=== PATIENT | female | born 1960 | race Caucasian/White ===

== ENCOUNTER → 2018-08-16 06:59 | Outpatient (CLI) | payer OTHER, SELFPAY ==
--- NOTE | 2018-08-17 14:31 | STRESSREP_ITS ---
Stress Test Report Date: 08/16/2018 Procedure: Exercise tolerance test/imaging study Indications: Chest pain Consent: Per the patient Procedure: The patient exercised on a Asa protocol for 4 minutes and 24 seconds achieving a peak heart rate of 144 bpm (87 % predicted maximal heart rate) with a peak blood pressure 194/80 mmHg and a peak MET capacity of 6.2 METs. The baseline ECG demonstrated normal sinus rhythm, no ST-T changes. The peak exercise ECG demonstrated sinus tachycardia with no significant ischemic ST-T changes. EKG during recovery revealed no significant EKG changes of ischemia [There were no cardiac dysrhythmias pretest, during exercise, or recovery]. The functional capacity was considered decreased for age. There was [no complaint of chest discomfort during exercise or recovery]. The examination was discontinued secondary to dyspnea. Impression: 1. Technically adequate (percent predicted maximal heart rate greater than 85%) exercise tolerance test 2. Stress test is negative for exercise-induced EKG changes of ischemia 3. The test test is negative for exercise-induced chest pain 4. Functional capacity is[below average for age] 5. Nuclear images pending Myocardial perfusion imaging study: Technique: The patient was injected with 14.3 mCi of technetium 99m Cardiolite and subsequently rest SPECT Cardiolite nuclear imaging was obtained in the horizontal long, vertical long, and short axis views. The patient exercised on a Asa protocol. Please see above for details. The patient was injected with 44.6 mCi of technetium 99m Cardiolite and subsequently stress SPECT Cardiolite nuclear imaging was obtained in the horizontal long, vertical long, and short axis views. A gated Cardiolite study at peak stress was obtained. Interpretation: Rest and stress SPECT Cardiolite nuclear imaging status post realignment, normalization, and attenuation correction, demonstrates normal myocardial radioisotope uptake on the stress images. There is no evidence of significant ischemia or infarction. The gated Cardiolite study demonstrates no significant regional wall motion abnormalities. The reported LVEF is 68 %. Impression: 1. There is no evidence of significant ischemia or infarction. 2. The gated Cardiolite study reports an LVEF of 68%. This note was generated with [employer] software. It may contain incorrect words, spelling, and punctuation that were not noted in checking the note before signing.
== END ==
PROVIDERS: Family Provider Family Medicine; PCP Family Medicine; Referring Provider Family Medicine; Visit Provider Family Medicine
DX: R07.89 Other chest pain (principal)
CPT/HCPCS: 78452; 93017; A9500; A4216

== ENCOUNTER → 2019-09-14 10:45 | Outpatient (CLI) | payer OTHER, SELFPAY ==
--- NOTE | 2019-09-14 10:49 | CT_ITS ---
STUDY: CT ABDOMEN AND PELVIS WITHOUT CONTRAST REASON FOR EXAM: Female, 59 years old. Abdominal pain history of stones. RADIATION DOSAGE (If Supplied By Facility): CTDIvol = ( 18.52 ) mGy, DLP = ( 957.59 ) mGycm TECHNIQUE: Transaxial images were obtained from the dome of the diaphragm to the symphysis pubis without oral contrast, and without intravenous contrast. Sagittal and coronal images were reconstructed. Individualized dose optimization techniques were used for this CT. COMPARISON: None. FINDINGS: The visualized lung bases are unremarkable. The visualized portions of the heart are within normal limits. The liver is moderately enlarged and fatty infiltrated. Spleen is normal. Gallbladder is removed. There is no biliary dilation. Pancreas is normal. Adrenal glands are normal. There are no urinary calculi or hydronephrosis. There is a left renal 2 cm exophytic well-defined lesion, incompletely characterized. There is no intestinal obstruction. The appendix is normal. Uterus is removed. BMI is elevated with abdominal lipomatosis. CT/Abdomen/Pelvis without Cont IMPRESSION: 1. No acute abdominal findings. 2. Left renal lesion, incompletely characterized, refer to confirmatory imaging such as ultrasound or CT with contrast. 3. Hepatomegaly and steatosis. Hepatology referral is advised. Electronically Signed: Martin Glover, at 15:16 EDT Tel , Service support ,
--- NOTE | 2019-09-14 10:50 | RAD_ITS ---
STUDY: X-RAY - ABDOMEN/PELVIS REASON FOR EXAM: Female, 59 years old. stones, flank pain TECHNIQUE: Frontal view of the abdomen COMPARISON: None. FINDINGS: Normal visualized lung bases. There are cholecystectomy clips. There is an unremarkable bowel gas pattern. There is no demonstrated free abdominal air. The visualized liver, spleen and kidneys are grossly normal in size and morphology. Normal soft tissue structures. Normal visualized osseous structures. RAD/Abdomen Single View IMPRESSION: Normal x-ray examination of the abdomen and pelvis. Electronically Signed: Martin Glover, at 14:48 EDT Tel , Service support ,
== END ==
PROVIDERS: PCP Family Medicine; Referring Provider Urology; Visit Provider Urology
DX: N20.0 Calculus of kidney (principal)
CPT/HCPCS: 74018; 74176

== ENCOUNTER 2019-10-25 10:49 | Observation (INO) | payer OTHER, SELFPAY ==
[2019-10-25] VITALS (10 sets, daily range): BP systolic 143–174; BP diastolic 71–93; PULSE 66–76; RESP 18–107; TEMP 35.2–37.1; O2SAT 96–99; BMI 40.3; BMI 39.9
--- NOTE | 2019-10-25 11:04 | EKG12_ITS ---
Test Reason : DIZZINESS Blood Pressure : / mmHG Vent. Rate : 072 BPM Atrial Rate : 072 BPM P-R Int : 152 ms QRS Dur : 082 ms QT Int : 422 ms P-R-T Axes : 048 022 031 degrees QTc Int : 462 ms Normal sinus rhythm Normal ECG Confirmed by LILLIE COLE, LOS ([id number]), scientific publications editor DRISS RAMIRES ([id number]) on 10/28/2019 1:44:00 PM Referred By: RAO Confirmed By:LOS MOREIRA MD
--- NOTE | 2019-10-25 11:04 | CT_ITS ---
STUDY: CT BRAIN WITHOUT CONTRAST REASON FOR EXAM: Female, 59 years old. Dizziness and nausea today, headache. Hx diabetes. RADIATION DOSAGE (If Supplied By Facility): CTDIvol = ( 44.99 ) mGy, DLP = ( 779.24 ) mGycm TECHNIQUE: Transaxial CT imaging of the brain was performed without administration of intravenous contrast material. Individualized dose optimization techniques were used for this CT. COMPARISON: No relevant priors. FINDINGS: Normal soft tissue structures. Normal calvarium. Normal size ventricles and extra-axial spaces for the patient''s age. Normal white matter tracts of the cerebral hemispheres. Normal basal ganglia and thalami. Normal brainstem. Normal cerebellum. There is no intracranial hemorrhage. There are no findings of an acute ischemic infarction. Normal visualized paranasal sinuses. CT/Brain/Head without Contrast IMPRESSION: Normal unenhanced CT scan of the brain. Electronically Signed: Caio Townsend, at 12:12 EDT , Service support ,
[2019-10-25 11:25] LABS: Bedside Glucose 112 mg/dL (70-110)
--- NOTE | 2019-10-25 11:27 | ED.RN ---
discussed with dr. paul the nih order q30 minutes. per [address] paul no need to complete every 30 minutes. only complete if an acute change occurs.
[2019-10-25 11:34] LABS: Absolute Neutrophil Count 5.8 X10^3/uL (2.0-7.7); Basophil# 0.03 X10^3/uL; Basophil% 0.4 % (0-1); Eosinophil# 0.11 X10^3/uL; Eosinophils% 1.4 % (0-5); Hematocrit 37.5 % (37-47); Lymphocyte % 20.1 % (19-41); Mean Corpuscular Hgb 26.4 pg (27.0-32.0); Mean Corpuscular Volume 82.4 fL (81-99); Mean Platelet Vol. 9.7 fl (6.2-12.0); Monocyte# 0.41 X10^3/uL; Monocyte% 5.2 % (0-10); NRBC Flagged by Analyzer 0 % (0-5); Neutrophil # 5.78 X10^3/uL (2.7-7.7); Neutrophil % 72.5 % (47-70); Platelet Count 313 K/mm3 (150-450); RBC Distribution Width CV 14.1 % (11.6-14.6); RBC Distribution Width SD 41.7 fl (35.1-43.9); Red Blood Count 4.55 M/mm3 (4.2-5.4)
--- NOTE | 2019-10-25 11:35 | RAD_ITS ---
STUDY: X-RAY CHEST REASON FOR EXAM: Female, 59 years old. Dizzy, nauseous, headache. Pt is diabetic. TECHNIQUE: Single AP portable view of the chest. COMPARISON: Comparison is made with prior study dated 12/27/2009. FINDINGS: EKG electrodes are seen. The lungs are clear and expanded. There is no demonstrated pleural abnormality. Normal size heart. Normal mediastinum and madelaine. Normal visualized pulmonary arteries. There is atherosclerotic tortuosity of the aortic arch and descending thoracic aorta. Normal visualized thoracic spine. Normal visualized ribs, clavicles, and shoulders. There is no demonstrated abnormality of the visualized soft tissue structures of the upper abdomen. RAD/Chest 1 View IMPRESSION: No acute abnormality seen. Electronically Signed: Caio Townsend, at 12:12 EDT , Service support ,
[2019-10-25 11:51] LABS: Anion Gap 4 (5-15); BUN 14 mg/dL (7-18); BUN/Creat Ratio 19.8 RATIO (10-20); Calcium,Total 8.8 mg/dL (8.5-10.1); Chloride 107 mmol/L (98-107); Creatinine, Serum 0.71 mg/dL (0.55-1.02); EST Glomerular Filtration Rate 90 mL/min (>60); Est Glom Filt Rate - Afr Amer 109 mL/min (>60); Estimated Creatinine Clearance 75.49 ml/min; Glucose 111 mg/dL (74-106); Potassium 3.9 mmol/L (3.5-5.1); Sodium Level 140 mmol/L (136-145)
--- NOTE | 2019-10-25 12:34 | ED.DCSUM_ITS ---
- ER Visit Summary Date of Service: 10/25/19 Chief Complaint: Dizziness History of Present Illness: The patient is a 59 F who presents with vertigo. Symptoms started prior to arrival. She had similar symptoms intermittently over the past week. Associated with nausea, mental fogginess, headache, her balance is off, and she had trouble speaking and finding words. She has a history of diabetes and hypertension. She recently stopped her blood pressure medicines because they were causing a cough. She is not on anticoagulation. Physical Examination: Hypertensive but otherwise vitals unremarkable. NIH stroke scale is 0. Exam including HEENT exam is unremarkable. Test Results: EKG shows sinus rhythm at a rate of 72. CBC, BMP, coags, troponin normal. Chest x-ray and CT brain unremarkable. Emergency Department Course and Treatment: Patient presents with vertigo. She does not have clear-cut peripheral vertigo symptoms. She has risk factors for stroke and she is having some other associated symptoms such as speech changes. Given these findings and her risk factors, I contacted the hospitalist to admit to rule out stroke. I do not suspect a large vessel occlusion at this time. CTA was not performed. Patient did not meet criteria for TPA or stroke team activation. Treatment Plan: As above Disposition: Admission Impression: Vertigo This note was generated with [employer] dictation software. It may contain incorrect words, spelling, and punctuation that were not noted in review of the chart prior to signing ED Disposition - Plan for ED Patient: Referrals: Ralf Capellan III, MD [Primary Care Provider] -
--- NOTE | 2019-10-25 12:54 | NURSING ---
PCU VERTIGO KOTSONIS
--- NOTE | 2019-10-25 13:43 | ECHOCS_ITS ---
Reason For Study: TIA/CVA Procedure This was a 2D Doppler, Color Flow transthoracic echocardiogram. Contrast injection was performed. Exam performed portable in patient room. Left Ventricle Normal LV size. Left ventricular systolic function is normal. The estimated ejection fraction is 65 %. No regional wall motion abnormalities noted. Right Ventricle Normal RV size. Normal systolic function. Atria Normal left atrium. Normal right atrium. Bubble contrast study negative for right to left interatrial shunt. Mitral Valve Normal mitral valve. Aortic Valve The aortic valve is not well visualized. Great Vessels Normal aortic root. Pericardium/Pleural No pericardial effusion. Medication Diluted definity 3ml given slow IV push to enhance endocardial definition. Performed a rapid injection of agitated mix of 9 cc saline and 1cc air to assess for atrial septal defect. MMode/2D Measurements & Calculations LVIDd: 4.1 cm IVSd: 1.2 cm Ao root diam: 3.6 cm LVIDs: 2.7 cm LVPWd: 1.4 cm LA dimension: 3.9 cm FS: 34.6 % LAV(MOD-bp): 65.1 ml LVAd ap4: 38.7 cm2 SV(MOD-sp4): 96.1 ml LAV(MOD-bp) Indexed: 31.1 ml/m2 EDV(MOD-sp4): 137.3 ml LAV(MOD-sp2): 63.0 ml EDV(sp4-el): 145.5 ml LAV(MOD-sp4): 59.4 ml LVAs ap4: 17.7 cm2 ESV(MOD-sp4): 41.2 ml ESV(sp4-el): 43.9 ml EF(MOD-sp4): 70.0 % EF(sp4-el): 69.9 % SV(sp4-el): 101.6 ml LA A4 area: 20.7 cm2 RA A4 area: 16.8 cm2 Time Measurements MV dec time: 0.21 sec Doppler Measurements & Calculations MV E max bib: 81.9 cm/sec Lat Peak E' Bib: 10.9 cm/sec Med Peak E' Bib: 9.3 cm/sec MV A max bib: 87.7 cm/sec E/E' lat: 7.5 E/E' med: 8.8 MV E/A: 0.93 MV V2 max: 93.2 cm/sec MV P1/2t max bib: 90.2 cm/sec Ao V2 max: 138.9 cm/sec MV max P.5 mmHg MV P1/2t: 56.2 msec Ao max P.7 mmHg MV V2 mean: 51.0 cm/sec MV dec slope: 469.8 cm/sec2 MV mean P.2 mmHg MV V2 VTI: 28.3 cm MVA(P1/2t): 3.9 cm2 LV V1 max: 114.3 cm/sec PA V2 max: 89.8 cm/sec TR max bib: 278.3 cm/sec LV V1 max P.2 mmHg TR max P.0 mmHg Interpretation Summary Normal LV size. Left ventricular systolic function is normal. Bubble contrast study negative for right to left interatrial shunt. Ordering Physician: Jaxson Maravilla Referring Physician: ANNABELLE Capellan M.D. Performed By: Sonu Juan RCS
--- NOTE | 2019-10-25 13:43 | MRI_ITS ---
STUDY: MRI BRAIN WITHOUT CONTRAST REASON FOR EXAM: Female, 59 years old. dizziness, frontal and occipital H/A TECHNIQUE: Standardized multiplanar fat and water weighted pulse sequences were obtained. COMPARISON: CT of the brain 10/25/2019 FINDINGS: Normal size of the ventricles and extra-axial spaces for the patient''s age. There are 2 tiny white matter lesions which are nonspecific in etiology and of uncertain clinical significance. Normal bilateral basal ganglia. Normal thalami. There is no extra-axial fluid accumulation. Normal flow voids within the major intracranial circulation suggesting patency by spin echo criteria. Normal sella turcica, pituitary gland, infundibular stalk, optic chiasm and hypothalamus. Normal tectal plate and pineal gland. Normal midbrain, leah and medulla. Normal cerebellum. Normal basal cisterns. Normal bilateral temporal bones. Normal bilateral internal auditory canals. Increased signal intensity within left mastoid air cells which may be on the basis of inflammatory disease. Minor mucosal thickening within the ethmoid air cells No demonstrated orbital abnormality, within the constraints of a routine brain study. Polypoid mucosal thickening in the left maxillary antrum.. Normal calvarium and skull base. Normal visualized soft tissue structures. Normal visualized upper cervical spine. MRI/Brain without Contrast IMPRESSION: Minimal white matter changes of uncertain etiology or clinical significance. No evidence for significant white matter disease or acute infarct Electronically Signed: Hardeep Mancia MD at 16:21 EDT , Service support ,
--- NOTE | 2019-10-25 17:18 | CT_ITS ---
STUDY: CTA HEAD AND NECK WITH CONTRAST REASON FOR EXAM: Female, 59 years old. VERTIGO, NAUSEA, MENTAL FOGGINESS, OFF BALANCE, APHASIA RADIATION DOSAGE (If Supplied By Facility): CTDIvol = ( 20.325 ) mGy, DLP = ( 731.22 ) mGycm TECHNIQUE: CT angiography was performed with a multi-detector CT scanner. Data acquisition was obtained from the skull base through the vertex following intravenous administration of IV 100mL Isovue-370. MIP images were reconstructed from the axial data set. Post-processing of the angiographic images was performed, with multiplanar reformation and 3D reconstruction. Individualized dose optimization techniques were used for this CT. COMPARISON: No relevant priors. FINDINGS: Normal bilateral petrous carotid arteries. Normal right cavernous carotid artery with a normal supraclinoid bifurcation. Normal left cavernous carotid artery with a normal supraclinoid bifurcation. Normal right A1 segments of the anterior cerebral artery. Normal left A1 segments of the anterior cerebral artery. Anterior communicating artery is not visualized consistent with normal variant.). Normal bilateral A2 segments of the anterior cerebral arteries. Normal right M1 and M2 segments of the middle cerebral arteries, with a normal M1 bifurcation. Normal left M1 and M2 segments of the middle cerebral arteries, with a normal M1 bifurcation. Posterior communicating arteries not visualized consistent with normal variant. Normal bilateral vertebral arteries. Normal basilar artery with a normal basilar bifurcation. The visualized bilateral superior cerebellar (SCA) arteries are normal. Normal bilateral P1, P2 and visualized P3 segments of the posterior cerebral arteries. There is no demonstrated aneurysm of the [place]. There is no demonstrated abnormality of the visualized brain. AORTIC ARCH: Normal visualized aortic arch. Normal origins of the brachiocephalic, left common carotid, and left subclavian arteries. RIGHT CAROTID ARTERIES: Normal right common carotid artery (CCA). Normal right common carotid bulb. Normal origin of the right internal carotid (ICA) artery without a hemodynamically significant stenosis. Normal visualized cervical portion of the right internal carotid artery. Normal origin of the right external carotid artery (ECA). LEFT CAROTID ARTERIES: Normal left common carotid artery (CCA). Normal left common carotid bulb. Normal origin of the left internal carotid (ICA) artery without a hemodynamically significant stenosis. Normal visualized cervical portion of the left internal carotid artery. Normal origin of the left external carotid artery (ECA). VERTEBRAL ARTERIES: Right vertebral artery is normal caliber. There is calcific plaquing of the proximal left vertebral without significant stenosis CT/CTA Head AND Neck W/ Contrast IMPRESSION: Mild atherosclerotic disease with most pronounced involvement of the proximal left vertebral artery. No evidence for hemodynamically significant stenosis utilizing NASCET criteria Electronically Signed: Hardeep Mancia MD at 18:30 EDT , Service support ,
[2019-10-25 17:30] LABS: Bedside Glucose 104 mg/dL (70-110)
--- NOTE | 2019-10-25 17:37 | PCM.HP.STD ---
History of Present Illness Date of Admission: 10/25/19 Chief Complaint: Vertigo The patient is a 59 year old F with a PMH as below who presents to the hospital with repeated episodes of vertigo. She states that it feels like maybe she is spinning but also feels like when you get up too fast and you get a little bit lightheaded. She does not have any significant symptoms whenever she turns her head unless she turns her head too quickly. She denies any significant positional issues with this vertigo. She has chronic numbness in her lower extremities due to diabetes, and she has a numb left thumb that she was told was due secondary to a pinched nerve therefore in the ER her NIH was 0. She does not appear to have any slurred speech or blurry vision. She does describe having posterior neck pain and she is not sure where that came from but denies any neck stiffness or photophobia. She had been having intermittent vertigo-like symptoms over the last week or so however they would usually resolve, this 1 has been going on all day. Of note she has noticed over the last several months that she has been having word finding issues though she and her primary care physician have just attributed this to the aging process. Past Medical History Allergies Sulfa (Sulfonamide Antibiotics) Allergy (Verified 10/25/19 10:50) Hives amoxicillin [From Augmentin] Adverse Reaction (Verified 10/25/19 10:50) Upset Stomach clavulanic acid [From Augmentin] Adverse Reaction (Verified 10/25/19 10:50) Upset Stomach codeine Adverse Reaction (Verified 10/25/19 10:50) Nausea/Vom/Diarrhea dicyclomine [From Bentyl] Adverse Reaction (Verified 10/25/19 10:50) Nausea/Vom/Diarrhea Home Medications: Ambulatory Orders Medication Instructions Recorded Paroxetine [Paxil] 20 mg PO QHS 08/02/16 Omeprazole [Prilosec] 20 mg PO DAILY 08/05/16 Dulaglutide [Trulicity] 0.75 mg SQ QWEEK 10/25/19 Insulin Aspart [Novolog Flexpen] 8 units SQ TIDCM 10/25/19 Insulin Glargine,Hum.rec.anlog 44 unit SQ QHS 10/25/19 [Basaglar Kwikpen U-100] Surgical History: cholecystectomy, herniorrhaphy, hysterectomy Smoking Status: Never smoker Alcohol: None Drugs: None - *Family History Paternal History Items: Renal Disease Maternal History Items: Cancer Review of Systems Constitutional: Denies: Chills, Fever, Weight Change Eyes: Denies: Blurred vision, Vision Change HEENT: Denies: Head Aches, Sinus Congestion, Sinus Drainage Cardiovascular: Denies: Chest Pain, Palpitations Respiratory: Denies: Cough, Shortness of breath at rest, Sputum production Gastrointestinal: Denies: Abdominal Pain, Nausea, Vomiting Genitourinary: Denies: Dysuria Musculoskeletal: Denies: Joint Pain, Joint Tenderness Skin: Denies: Rash, Wounds Neurological: Reports: Balance problems, - - Dizziness. Denies: Focal weakness, Numbness, Tingling Psychiatric: Denies: Anxiety, Depression Hematologic/ Lymphatic: Denies: Easy Bruising, Easy Bleeding VTE Information - Inpt Only VTE Present on Admission: No - Physical Exam Vitals/I&O's: Vital Signs Temp Pulse Resp BP Pulse Ox 98.7 F 72 18 158/72 H 98 10/25/19 13:43 10/25/19 15:53 10/25/19 13:43 10/25/19 13:43 10/25/19 15:20 Oxygen Delivery Method Room Air Weight: 234 lb Body Mass Index (BMI) 39.9 Finger Stick Blood Glucose 112 General: Alert, Oriented x3, Cooperative, No apparent distress HEENT: Atraumatic, PERRLA, EOMI, Normocephalic Oral: Moist Mucosa Neck: Supple, No JVD Lungs: Clear to auscultation, Normal air movement, No rhonchi, No wheeze, No rales Cardiovascular: Regular rate, Regular Rhythm, Normal S1, Normal S2, No murmurs Abdomen: Soft, Non Tender, Non-Distended, No Hepato-splenomegaly Extremities: No edema, Capillary Refill Less than 3 Seconds Skin: No rashes, No breakdown Neurological: Cranial nerves II-XII grossly intact, Neuro grossly intact, Motor Exam 5/5 strength throughout, Sensory exam intact to light touch and pain Psych/Mental Status: Normal Affect, Appropriate Laboratory Results 10/25/19 11:13: POC Glucose 112 H 10/25/19 11:25: WBC 8.0, RBC 4.55, Hgb 12.0, Hct 37.5, MCV 82.4, MCH 26.4 L, MCHC 32.0, RDW Std Deviation 41.7, RDW Coeff of Baljit 14.1, Plt Count 313, MPV 9.7, Immature Gran % (Auto) 0.400, Neut % (Auto) 72.5 H, Lymph % (Auto) 20.1, [place] % (Auto) 5.2, Eos % (Auto) 1.4, Baso % (Auto) 0.4, Absolute Neuts (auto) 5.8, Absolute Lymphs (auto) 1.60, Nucleated RBC % 0 10/25/19 11:25: PT 13.0, INR 1.0, APTT 27.0 10/25/19 11:25: Sodium 140, Potassium 3.9, Chloride 107, Carbon Dioxide 29.0, Anion Gap 4 L, BUN 14, Creatinine 0.71, Estim Creat Clear Calc 75.49, Est GFR (MDRD) Af Amer 109, Est GFR (MDRD) Non-Af 90, BUN/Creatinine Ratio 19.8, Glucose 111 H, Calcium 8.8, Troponin I < 0.015 10/25/19 17:18: POC Glucose 104 Current Medications Acetaminophen (Tylenol) 650 mg PO Q6H PRN PRN PRN Reason: Pain Score 1-10/Temp > 100.7 F Amlodipine Besylate (Norvasc) 10 mg PO DAILY [facility] Dextrose (D50w Syringe) 0 gm IV X1 PRN; Protocol PRN Reason: Hypoglycemia Glucagon () 1 mg IM .X1 PRN PRN Reason: Hypoglycemia Hydrochlorothiazide (Hctz) 25 mg PO DAILY [facility] Influenza Virus Vaccine Quadrival (Flucelvax /Fluzone ) 0.5 ml IM .ONCE ONE Stop: 10/26/19 10:01 Insulin Glargine (Lantus (Bk)) 44 units SC QHS [facility] Insulin Human Lispro (Humalog Kwikpen (Bk)) 8 unit SC TIDCM [facility] Last Admin: 10/25/19 17:22 Dose: Not Given Documented by: Labetalol HCl (Trandate) 20 mg IV X1 PRN PRN Reason: BLOOD PRESSURE Meclizine HCl (Antivert) 25 mg PO TID PRN PRN PRN Reason: DIZZINESS Melatonin (Melatonin) 3 mg PO QHS PRN PRN PRN Reason: INSOMNIA Ondansetron HCl (Zofran) 4 mg IV Q8H PRN PRN PRN Reason: NAUSEA/VOMITING Pantoprazole Sodium (Protonix) 20 mg PO DAILY [facility] Paroxetine HCl (Paxil) 20 mg PO QHS [facility] Sodium Chloride () 10 - 40 ml IV UD PRN PRN Reason: SALINE FLUSH Assessment/Plan 1. CVA versus vertigo/HTN -MRI of the brain was negative as was the echo -CT the brain was normal -NIH is 0, physical exam is unremarkable -We will obtain a CTA of the head and neck to rule out any vascular issues since she is complaining about posterior neck pain and the vertigo -Continue with meclizine -She had been on lisinopril and hydrochlorothiazide as an outpatient however this was stopped a week or 2 ago because of coughing therefore will transition her to hydrochlorothiazide and Norvasc monitor her blood pressure in the morning. 2. IDDM 2 -We will continue with her home insulin -Accu-Cheks AC at bedtime 3. GERD -Stable -Continue with PPI 4. Anxiety/depression -Stable -Continue with Paxil DVT: Ambulation OBSV E&M: [id number] Initial observation care L3
[2019-10-25] MEDS: Paroxetine 20 MG Tablet PO (20:04)
--- NOTE | 2019-10-25 20:10 | NURSING ---
Pt requesting to have night meds early.
[2019-10-25 21:01] LABS: Bedside Glucose 151 mg/dL (70-110)
[2019-10-26 02:59] VITALS: PULSE 72
[2019-10-26 03:15] VITALS: BP 140/69; PULSE 78; RESP 16; TEMP 36.6; O2SAT 97
[2019-10-26 06:50] LABS: Absolute Neutrophil Count 5.2 X10^3/uL (2.0-7.7); Basophil# 0.04 X10^3/uL; Basophil% 0.5 % (0-1); Eosinophil# 0.13 X10^3/uL; Eosinophils% 1.7 % (0-5); Hematocrit 35.9 % (37-47); Hemoglobin 11.3 g/dL (12.0-15.0); Lymphocyte % 23.8 % (19-41); Mean Corp Hgb Conc 31.5 g/dL (32-36); Mean Corpuscular Volume 82.7 fL (81-99); Mean Platelet Vol. 9.8 fl (6.2-12.0); Monocyte# 0.42 X10^3/uL; Monocyte% 5.5 % (0-10); NRBC Flagged by Analyzer 0 % (0-5); Neutrophil # 5.16 X10^3/uL (2.7-7.7); Neutrophil % 68.2 % (47-70); Platelet Count 301 K/mm3 (150-450); RBC Distribution Width SD 42.2 fl (35.1-43.9); Red Blood Count 4.34 M/mm3 (4.2-5.4); White Blood Count 7.6 K/mm3 (4.4-11.0)
[2019-10-26 06:55] VITALS: PULSE 72
[2019-10-26 07:04] LABS: Anion Gap 7 (5-15); BUN 12 mg/dL (7-18); BUN/Creat Ratio 17.7 RATIO (10-20); Calcium,Total 8.3 mg/dL (8.5-10.1); Chloride 104 mmol/L (98-107); Creatinine, Serum 0.68 mg/dL (0.55-1.02); EST Glomerular Filtration Rate 95 mL/min (>60); Est Glom Filt Rate - Afr Amer 115 mL/min (>60); Estimated Creatinine Clearance 78.82 ml/min; Glucose 129 mg/dL (74-106); Potassium 3.6 mmol/L (3.5-5.1); Sodium Level 139 mmol/L (136-145)
[2019-10-26 07:30] VITALS: O2SAT 97
[2019-10-26 08:01] VITALS: BP 136/68; PULSE 78; RESP 16; TEMP 36.8; O2SAT 98
[2019-10-26] MEDS: Acetaminophen 325 MG Tablet 650 MG PO (08:07)
[2019-10-26] MEDS: hydroCHLOROthiazide 25 MG Tablet PO (08:08)
[2019-10-26] MEDS: amLODIPine 10 MG Tablet PO (08:08)
[2019-10-26] MEDS: Pantoprazole Sodium 20 MG Tablet PO (08:08)
[2019-10-26 08:11] LABS: Bedside Glucose 132 mg/dL (70-110)
[2019-10-26] MEDS: Insulin Lispro 100 UNIT/ML INSULN.PEN 8 UNIT SC (08:13)
--- NOTE | 2019-10-26 08:24 | DCINST_ITS ---
You will use the following diet at home:: Calorie/Carbohydrate Controlled (specify 1200, 1400, etc) - 1800, Cardiac Your food should be the consistency of: Regular Your liquids should be the consistency of: Regular/Thin Discharge Activity: Return to Normal Activity Call your doctor if you observe: Fever of 101 or Higher, Shortness of breath, Dizziness, Fainting spells, Swelling in the ankles, Chest pain, Increased palpitations (irregular heartbeat) Additional Instructions: Have a BMP as an outpatient to monitor you kidney function and electrolytes. If you notice any lightheadedness or dizzines, check your blood pressure, if low, then cut your norvasc in half. Allergies/Adverse Reactions: Allergies Sulfa (Sulfonamide Antibiotics) Allergy (Verified 10/25/19 10:50) Hives amoxicillin [From Augmentin] Adverse Reaction (Verified 10/25/19 10:50) Upset Stomach clavulanic acid [From Augmentin] Adverse Reaction (Verified 10/25/19 10:50) Upset Stomach codeine Adverse Reaction (Verified 10/25/19 10:50) Nausea/Vom/Diarrhea dicyclomine [From Bentyl] Adverse Reaction (Verified 10/25/19 10:50) Nausea/Vom/Diarrhea Medications to take at Discharge Paroxetine [Paxil] 20 mg PO QHS 08/02/16 Omeprazole [Prilosec] 20 mg PO DAILY 08/05/16 Dulaglutide [Trulicity] 0.75 mg SQ QWEEK 10/25/19 Insulin Aspart [Novolog Flexpen] 8 units SQ TIDCM 10/25/19 Insulin Glargine,Hum.rec.anlog [Basaglar Kwikpen U-100] 44 unit SQ QHS 10/25/19 Amlodipine [Norvasc] 10 mg PO DAILY #30 tab 10/26/19 Hydrochlorothiazide [Hctz] 25 mg PO DAILY #30 tab 10/26/19 Meclizine HCl [Antivert] 25 mg PO TID PRN PRN #15 tab 10/26/19 The following prescriptions were given: Meclizine HCl [Antivert] 25 mg PO TID PRN PRN #15 tab PRN Reason: Dizziness Hydrochlorothiazide [Hctz] 25 mg PO DAILY #30 tab Amlodipine [Norvasc] 10 mg PO DAILY #30 tab Primary Care Physician: Ralf Capellan III, MD [Primary Care Provider] - Please follow up with your Primary Care Physician in: 3-5 days Test Results: Test results from this visit will be discussed in further detail at your follow- up appointment, if applicable.
--- NOTE | 2019-10-26 08:27 | DS.PCM_ITS ---
Discharge Date and Diagnosis Date of Admission: 10/25/19 Date of Discharge: 10/26/19 Hospital Course and Treatment Imaging Results: Clinical Impression(s) from Imaging Studies Brain CT 10/25/19 11:04 IMPRESSION: Normal unenhanced CT scan of the brain. Electronically Signed: Caio Adhikarijacksonla, at 12:12 EDT , Service support , Chest X-Ray 10/25/19 11:35 IMPRESSION: No acute abnormality seen. Electronically Signed: Caio Bourgeoisdany, at 12:12 EDT , Service support , Brain MRI 10/25/19 13:43 IMPRESSION: Minimal white matter changes of uncertain etiology or clinical significance. No evidence for significant white matter disease or acute infarct Electronically Signed: Hardeep Mancia MD at 16:21 EDT , Service support , Head/Neck CTA 10/25/19 17:18 IMPRESSION: Mild atherosclerotic disease with most pronounced involvement of the proximal left vertebral artery. No evidence for hemodynamically significant stenosis utilizing NASCET criteria Electronically Signed: Hardeep Mancia MD at 18:30 EDT , Service support , Echo: Interpretation Summary Normal LV size. Left ventricular systolic function is normal. Bubble contrast study negative for right to left interatrial shunt. Operations: None Procedures: 2-D Echocardiogram Summary of Care Provided: Per HPI: The patient is a 59 year old F with a PMH as below who presents to the hospital with repeated episodes of vertigo. She states that it feels like maybe she is spinning but also feels like when you get up too fast and you get a little bit lightheaded. She does not have any significant symptoms whenever she turns her head unless she turns her head too quickly. She denies any significant positional issues with this vertigo. She has chronic numbness in her lower extremities due to diabetes, and she has a numb left thumb that she was told was due secondary to a pinched nerve therefore in the ER her NIH was 0. She does not appear to have any slurred speech or blurry vision. She does describe having posterior neck pain and she is not sure where that came from but denies any neck stiffness or photophobia. She had been having intermittent vertigo-like symptoms over the last week or so however they would usually resolve, this 1 has been going on all day. Of note she has noticed over the last several months that she has been having word finding issues though she and her primary care physician have just attributed this to the aging process. Hospital Course: 1. CVA versus vertigo/[id number]-old female who presents from home with about a weeks worth of vertigo. She says it got worse on the day of admission. Echo was unremarkable, and the MRI of her brain was negative. She was complaining of some neck pain in the back therefore we ordered a CTA of her head and neck which was negative for any vascular problems. She was placed on meclizine however her blood pressure was elevated as well, and she states that she used to be on lisinopril/hydrochlorothiazide combination pill and she started having a cough so without consulting her doctor she just stopped her blood pressure medications. It does appear that the vertigo could likely be due to hypertension therefore she was started on hydrochlorothiazide and Norvasc. This was discussed with her and she understands that if she is to get lightheaded or dizzy she is to check her blood pressure and if it is low she is to either cut her Norvasc in half or just discontinue it altogether. She already has an appointment set up with her PCP on Monday of this week and I told her to keep that appointment. I discussed with her the plan for discharge today and she expressed understanding the risks and benefits and would like to go home. 2. Insulin-dependent type 2 diabetes, GERD, anxiety, depression are all chronic medical conditions that complicate her care. Her home medications were continued where appropriate - Physical Exam Vitals/I&O's: Vital Signs Temp Pulse Resp BP Pulse Ox 98.3 F 78 16 136/68 H 98 10/26/19 08:01 10/26/19 08:01 10/26/19 08:01 10/26/19 08:01 10/26/19 08:01 Oxygen Flow Rate (L/min) 0 Oxygen Delivery Method Room Air Weight: 234 lb Body Mass Index (BMI) 39.9 Finger Stick Blood Glucose 112 Intake and Output for Last 24 Hours 10/24/19 10/25/19 10/26/19 23:59 23:59 23:59 Intake Total 480 / 480 Balance 480 / 480 General: Alert, Oriented x3, Cooperative, No apparent distress HEENT: Atraumatic, PERRLA, EOMI, Normocephalic Oral: Moist Mucosa Neck: Supple, No JVD Lungs: Clear to auscultation, Normal air movement, No rhonchi, No wheeze, No rales Cardiovascular: Regular rate, Regular Rhythm, Normal S1, Normal S2, No murmurs Abdomen: Soft, Non Tender, Non-Distended, No Hepato-splenomegaly Extremities: No edema, Capillary Refill Less than 3 Seconds Skin: No rashes, No breakdown Neurological: Cranial nerves II-XII grossly intact, Neuro grossly intact, Motor Exam 5/5 strength throughout, Sensory exam intact to light touch and pain Psych/Mental Status: Normal Affect, Appropriate Laboratory Results 10/25/19 11:13: POC Glucose 112 H 10/25/19 11:25: WBC 8.0, RBC 4.55, Hgb 12.0, Hct 37.5, MCV 82.4, MCH 26.4 L, MCHC 32.0, RDW Std Deviation 41.7, RDW Coeff of Baljit 14.1, Plt Count 313, MPV 9.7, Immature Gran % (Auto) 0.400, Neut % (Auto) 72.5 H, Lymph % (Auto) 20.1, [place] % (Auto) 5.2, Eos % (Auto) 1.4, Baso % (Auto) 0.4, Absolute Neuts (auto) 5.8, Absolute Lymphs (auto) 1.60, Nucleated RBC % 0 10/25/19 11:25: PT 13.0, INR 1.0, APTT 27.0 10/25/19 11:25: Sodium 140, Potassium 3.9, Chloride 107, Carbon Dioxide 29.0, Anion Gap 4 L, BUN 14, Creatinine 0.71, Estim Creat Clear Calc 75.49, Est GFR (MDRD) Af Amer 109, Est GFR (MDRD) Non-Af 90, BUN/Creatinine Ratio 19.8, Glucose 111 H, Calcium 8.8, Troponin I < 0.015 10/25/19 17:18: POC Glucose 104 10/25/19 20:02: POC Glucose 151 H 10/26/19 06:23: WBC 7.6, RBC 4.34, Hgb 11.3 L, Hct 35.9 L, MCV 82.7, MCH 26.0 L, MCHC 31.5 L, RDW Std Deviation 42.2, RDW Coeff of Baljit 14.0, Plt Count 301, MPV 9.8, Immature Gran % (Auto) 0.300, Neut % (Auto) 68.2, Lymph % (Auto) 23.8, [place] % (Auto) 5.5, Eos % (Auto) 1.7, Baso % (Auto) 0.5, Absolute Neuts (auto) 5.2, Absolute Lymphs (auto) 1.80, Nucleated RBC % 0 10/26/19 06:23: Sodium 139, Potassium 3.6, Chloride 104, Carbon Dioxide 28.0, Anion Gap 7, BUN 12, Creatinine 0.68, Estim Creat Clear Calc 78.82, Est GFR (MDRD) Af Amer 115, Est GFR (MDRD) Non-Af 95, BUN/Creatinine Ratio 17.7, Glucose 129 H, Calcium 8.3 L 10/26/19 07:59: POC Glucose 132 H Current Medications Acetaminophen (Tylenol) 650 mg PO Q6H PRN PRN PRN Reason: Pain Score 1-10/Temp > 100.7 F Last Admin: 10/26/19 08:07 Dose: 650 mg Documented by: Amlodipine Besylate (Norvasc) 10 mg PO DAILY [facility] Last Admin: 10/26/19 08:08 Dose: 10 mg Documented by: Dextrose (D50w Syringe) 0 gm IV X1 PRN; Protocol PRN Reason: Hypoglycemia Glucagon () 1 mg IM .X1 PRN PRN Reason: Hypoglycemia Hydrochlorothiazide (Hctz) 25 mg PO DAILY [facility] Last Admin: 10/26/19 08:08 Dose: 25 mg Documented by: Influenza Virus Vaccine Quadrival (Flucelvax /Fluzone ) 0.5 ml IM .ONCE ONE Stop: 10/26/19 10:01 Insulin Glargine (Lantus (Bk)) 44 units SC QHS [facility] Last Admin: 10/25/19 20:04 Dose: 44 units Documented by: Insulin Human Lispro (Humalog Kwikpen ([facility])) 8 unit SC TIDCM [facility] Last Admin: 10/26/19 08:13 Dose: 8 units Documented by: Labetalol HCl (Trandate) 20 mg IV X1 PRN PRN Reason: BLOOD PRESSURE Meclizine HCl (Antivert) 25 mg PO TID PRN PRN PRN Reason: DIZZINESS Melatonin (Melatonin) 3 mg PO QHS PRN PRN PRN Reason: INSOMNIA Ondansetron HCl (Zofran) 4 mg IV Q8H PRN PRN PRN Reason: NAUSEA/VOMITING Pantoprazole Sodium (Protonix) 20 mg PO DAILY [facility] Last Admin: 10/26/19 08:08 Dose: 20 mg Documented by: Paroxetine HCl (Paxil) 20 mg PO QHS [facility] Last Admin: 10/25/19 20:04 Dose: 20 mg Documented by: Sodium Chloride () 10 - 40 ml IV UD PRN PRN Reason: SALINE FLUSH Discharge Activity: Return to Normal Activity Call your doctor if you observe: Fever of 101 or Higher, Shortness of breath, Dizziness, Fainting spells, Swelling in the ankles, Chest pain, Increased palpitations (irregular heartbeat) Home Medications: Medications to take at Discharge Paroxetine [Paxil] 20 mg PO QHS 08/02/16 Omeprazole [Prilosec] 20 mg PO DAILY 08/05/16 Dulaglutide [Trulicity] 0.75 mg SQ QWEEK 10/25/19 Insulin Aspart [Novolog Flexpen] 8 units SQ TIDCM 10/25/19 Insulin Glargine,Hum.rec.anlog [Basaglar Kwikpen U-100] 44 unit SQ QHS 10/25/19 Amlodipine [Norvasc] 10 mg PO DAILY #30 tab 10/26/19 Hydrochlorothiazide [Hctz] 25 mg PO DAILY #30 tab 10/26/19 Meclizine HCl [Antivert] 25 mg PO TID PRN PRN #15 tab 10/26/19 Following Prescriptions Were Given to Patient: Meclizine HCl [Antivert] 25 mg PO TID PRN PRN #15 tab PRN Reason: Dizziness Hydrochlorothiazide [Hctz] 25 mg PO DAILY #30 tab Amlodipine [Norvasc] 10 mg PO DAILY #30 tab Primary Care Physician: Ralf Capellan III, MD [Primary Care Provider] - Please follow up with your Primary Care Physician in: 3-5 days Disposition: Home Minutes spent on discharge:: 35 Patient Condition:: Stable Medical Necessity - Tobacco Use Smoking Status: Never smoker Meaningful Use Info Meaningful Use Diagnoses (Choose all that apply): None applicable OBSV E&M: 14729 Observation care discharge
== END 2019-10-26 08:25 | disposition home or self-care (01) ==
LOC: ED 12:42 → PCU 13:32
PROVIDERS: Admitting Provider Family Medicine; Emergency Provider Emergency Medicine; PCP Family Medicine; Visit Provider Family Medicine
DX: R42 Dizziness and giddiness (principal); Z23 Encounter for immunization; I10 Essential (primary) hypertension; E11.9 Type 2 diabetes mellitus without complications; R29.700 NIHSS score 0; Z79.899 Other long term (current) drug therapy; Z79.4 Long term (current) use of insulin; K21.9 Gastro-esophageal reflux disease without esophagitis; F41.9 Anxiety disorder, unspecified; F32.9 Major depressive disorder, single episode, unspecified; R20.0 Anesthesia of skin
CPT/HCPCS: 36415; 70450; 70496; 70498; 70551; 71045; 80048; 82962; 84484; 85025; 85610; 85730; 93005; 93306; 99218; 99284; Q9957; Q9967; 90686; A4216; C8929; G0378

== ENCOUNTER → 2019-11-25 09:30 | Outpatient (CLI) | payer OTHER, SELFPAY ==
[2019-10-25 13:48] VITALS: BMI 39.9
== END ==
PROVIDERS: PCP Family Medicine; Referring Provider Nurse Practitioner Family; Visit Provider Nurse Practitioner Family
DX: B34.9 Viral infection, unspecified (principal)
CPT/HCPCS: 87635; 87804; C9803; U0003

== ENCOUNTER 2022-04-03 07:29 | Emergency (ER) | payer OTHER, SELFPAY ==
[2022-04-03 07:30] VITALS: BP 175/75; PULSE 96; RESP 16; TEMP 36.5; O2SAT 99; BMI 38.7
--- NOTE | 2022-04-03 08:09 | ED.VIS.GI ---
HPI HPI - GI History of Present Illness Chief Complaint: Abd Pain Informant: patient Abdominal Pain/Flank Pain Onset: Yesterday Context: Gradual Onset Timing: Continuous Quality: Aching Location: - (Periumbilical) Current Severity: Mild Maximum Severity: Mild Worsened by: Nothing Relieved by: Nothing Nausea/Vomiting/Emesis GI Symptom: Positive for Nausea and Vomiting Onset: Yesterday Quality: Positive for Nonbilious; Negative for Blood streaks, Coffee ground or Hematemesis Severity: Severe Diarrhea/Melena/Hematochezia GI Symptom: Positive for Diarrhea; Negative for Melena or Hematochezia Onset: Yesterday Stool Quality: Positive for Watery Severity: Severe Associated Symptoms Associated Symptoms: Negative for Dysuria, Frequency or Hematuria Narrative Narrative: 61-year-old female presenting with vomiting and diarrhea that has been profuse, watery, nonbloody since last night, maybe 12 hours or less. She has had some subjective fevers and chills that do not last a long time. Abdominal pain that started later after the vomiting and diarrhea. 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 [facility] Medical History Degenerative disc disease Depression Diabetes mellitus type II, uncontrolled Essential hypertension GERD (gastroesophageal reflux disease) History of kidney stones Hyperlipidemia Nonalcoholic fatty liver disease Obesity (BMI 35.0-39.9 without comorbidity) Other specified degenerative disorders of nervous system in diseases classified elsewhere Peripheral neuropathy Resting tremor Spinal stenosis Venous insufficiency Home Medications paroxetine HCl 20 mg tablet 20 mg PO QHS 08/02/16 [History Last Taken Unknown] dulaglutide 0.75 mg/0.5 mL subcutaneous pen injector 0.75 mg SQ QWEEK 10/25/19 [History Last Taken Unknown] insulin aspart U-100 100 unit/mL (3 mL) subcutaneous pen 12 units SQ TIDCM 10/25/19 [History Last Taken Unknown] insulin glargine 100 unit/mL (3 mL) subcutaneous pen 44 unit SQ QHS 10/25/19 [History Last Taken Unknown] amlodipine 5 mg tablet 5 mg PO DAILY 07/14/21 [History Last Taken Unknown] hydrochlorothiazide 12.5 mg capsule 12.5 mg PO DAILY 07/14/21 [History Last Taken Unknown] lansoprazole 30 mg capsule,delayed release 30 mg PO BID 07/14/21 [History Last Taken Unknown] losartan 25 mg tablet 25 mg PO DAILY 07/14/21 [History Last Taken Unknown] potassium chloride 10 mEq tablet,extended release 10 meq PO DAILY 07/14/21 [History Last Taken Unknown] pravastatin 10 mg tablet 10 mg PO QHS 07/14/21 [History Last Taken Unknown] dicyclomine 10 mg capsule 20 mg PO Q6H PRN PRN abdominal discomfort #20 CAPSULES 04/03/22 [Rx Last Taken Unknown] ondansetron 4 mg disintegrating tablet 8 mg PO Q8H PRN PRN Nausea #20 tabs 04/03/22 [Rx Last Taken Unknown] Allergy/AdvReac Type Severity Reaction Status Date / Time Sulfa (Sulfonamide Allergy Hives Verified 04/03/22 07:30 Antibiotics) metformin AdvReac Intermediate Diarrhea Verified 04/03/22 07:30 amoxicillin [From Augmentin] AdvReac Upset Verified 04/03/22 07:30 Stomach clavulanic acid AdvReac Upset Verified 04/03/22 07:30 [From Augmentin] Stomach codeine AdvReac Nausea/Vom/ Verified 04/03/22 07:30 Diarrhea dicyclomine [From Bentyl] AdvReac Nausea/Vom/ Verified 04/03/22 07:30 Diarrhea Family History Mother Renal cancer Peptic ulcer Father Emphysema lung Renal failure Peptic ulcer Brother CAD (coronary artery disease) Myocardial infarction, Onset Age: 55 Brother CAD (coronary artery disease), Onset Age: 47 Hx of CABG Myocardial infarction, Onset Age: 47 Uncle Dissecting AAA (abdominal aortic aneurysm) Surgical History History of History of laparoscopic cholecystectomy History of lithotripsy History of total abdominal hysterectomy History of ventral hernia repair Social History Smoking Status: Never smoker ROS ROS ED Constitutional Constitutional ED: Reports chills, fever(s), malaise and subjective Eyes Eyes: Denies change in vision or diplopia ENT ENT ED: Denies rhinorrhea or sore throat Cardiovascular Cardiovascular: Denies chest pain or palpitations Respiratory/Chest Respiratory/Chest: Denies cough or dyspnea Gastrointestinal Gastrointestinal: Reports abdominal pain, diarrhea, nausea and vomiting; Denies hematemesis, hematochezia or melena Genitourinary Genitourinary ED: Denies dysuria or hematuria Musculoskeletal Musculoskeletal: Denies back pain or neck pain Integumentary Denies abscess or rash Neurologic Neurologic: Denies headache(s), paresthesias or weakness Psychiatric Psychiatric: Denies anxiety or suicidal thoughts EXAM Physical Exam Const Vital Signs: 04/03/22 07:30 Temperature 97.7 F L Temperature Source Temporal Pulse Rate 96 Respiratory Rate 16 Blood Pressure 175/75 H Blood Pressure Mean 108 Pulse Ox 99 Oxygen Delivery Method Room Air Positive well nourished, well developed and obese General Appearance ED: well developed and NAD Nutritional Appearance: obese HEENT Reports moist mucous membranes normocephalic and atraumatic Eyes PERRL and EOMs intact bilaterally Neck full ROM and supple Resp normal respiratory effort and clear to auscultation bilaterally Cardio regular rate, regular rhythm and no murmurs GI non-distended GI Narrative: Mild tenderness right mid abdomen without guarding or rebound. Negative Burgos's. Nontender McBurney's point. No other areas of tenderness, no palpable hernias. Auscultation: normoactive bowel sounds Palpation: soft Back/Spine no CVA tenderness General Back: other FROM Extremity normal to inspection General Extremety ED: Negative for edema, pulses abnormal or tenderness General Extremity: Negative for edema or pulses abnormal Neuro oriented x3, CN's II-XII intact bilaterally and no sensory deficits noted Sensorium / Orientation: awake and alert Motor Exam: strength 5/5 throughout Skin no rashes or lesions noted and no wounds MDM MDM MDM Narrative Medical decision making narrative: Patient's history and exam are mostly consistent with viral gastroenteritis especially given the prevalence in the community recently. Obtain labs including liver enzymes and lipase, and I reviewed those results. It is all basically consistent with that. She does have a mild nonspecific leukocytosis, but does not necessarily argue against it. After IV fluids, Zofran and Toradol only, she is feeling much better with regards to nausea, pain, and hydration. I reexamined her given the leukocytosis; she is nontender throughout her abdomen including the right side and including McBurney's point. Supportive care advised for right now, I do not think she needs any other work-up or imaging, we discussed reasons to return in which case I may reconsider the need for abdominal imaging, such as if she has migration of the pain, or if the pain continues to progressively worsen, and/or if she develops bloody diarrhea. She is comfortable with this overall plan. Lab Data Attestation: I reviewed the patient's lab results. Labs: Laboratory Results - last 24 hr 04/03/22 04/03/22 07:45 07:45 WBC 15.1 H RBC 5.11 Hgb 13.0 Hct 41.5 MCV 81.2 MCH 25.4 L MCHC 31.3 L RDW Std Deviation 42.5 RDW Coeff of Baljit 14.6 Plt Count 327 MPV 10.0 Immature Gran % (Auto) 0.300 Neut % (Auto) 93.5 H Lymph % (Auto) 3.4 L Sharp % (Auto) 2.5 Eos % (Auto) 0.1 Baso % (Auto) 0.2 Absolute Neuts (auto) 14.2 H Absolute Lymphs (auto) 0.51 L Nucleated RBC % 0 Sodium 140 Potassium 3.6 Chloride 106 Carbon Dioxide 26.0 Anion Gap 8 BUN 16 Creatinine 0.72 Estim Creat Clear Calc 72.65 Est GFR (MDRD) Af Amer 106 Est GFR (MDRD) Non-Af 88 BUN/Creatinine Ratio 22.2 H Glucose 181 H Calcium 8.9 Total Bilirubin 0.50 AST 11 L ALT 22 Alkaline Phosphatase 105 Total Protein 7.8 Albumin 3.5 Globulin 4.3 H Albumin/Globulin Ratio 0.8 L Lipase 73 Discharge Plan Triage Chief Complaint: Abd Pain Other Complaint: Nausea/Vomiting/Diarrhea ED Provider: Paulo Bello Dx/Rx/DC Orders Clinical Impression: Gastroenteritis Instructions: ED Gastroenteritis, Viral (Adult) Prescriptions: New ondansetron [ondansetron] 4 mg tablet,disintegrating 8 mg PO Q8H PRN PRN (Reason: Nausea) Qty: 20 0RF dicyclomine 10 mg capsule 20 mg PO Q6H PRN PRN (Reason: abdominal discomfort) Qty: 20 0RF No Action lansoprazole 30 mg capsule,delayed release(DR/EC) 30 mg PO BID losartan 25 mg tablet 25 mg PO DAILY amlodipine 5 mg tablet 5 mg PO DAILY pravastatin 10 mg tablet 10 mg PO QHS potassium chloride 10 mEq tablet extended release 10 meq PO DAILY hydrochlorothiazide 12.5 mg capsule 12.5 mg PO DAILY paroxetine HCl 20 MG tablet 20 mg PO QHS insulin aspart U-100 100 unit/mL (3 mL) insulin pen 12 units SQ TIDCM insulin glargine 100 UNIT/ML insulin pen 44 unit SQ QHS dulaglutide 0.75 MG/0.5 ML pen injector 0.75 mg SQ QWEEK Primary Care Provider: Hardeep Anders Referrals: Hardeep Anders MD [Primary Care Provider] - 3-5 Days if not improving Activity Restrictions/Additional Instructions: Dicyclomine prescription was printed for you, it is an antispasmodic for the intestinal pain you are experiencing, only to be used as needed and if needed. It is on your list of allergies/sensitivities, but your reaction is listed as nausea, vomiting, diarrhea, which typically this medication does not cause, and you already have those symptoms, so I suggest it only if you want to try it for the pain. Disposition Disposition: Home, Self Care
[2022-04-03] MEDS: Ondansetron 4 MG/2 ML Vial IV (08:28)
[2022-04-03] MEDS: Ketorolac 15 MG/ML Vial IV (08:28)
[2022-04-03] MEDS: 0.9% Normal Saline 1,000 ML 1000 ML IV (08:28)
[2022-04-03 08:39] LABS: Absolute Lymphocyte Count 0.51 X10^3/uL (0.83-4.51); Absolute Neutrophil Count 14.2 X10^3/uL (2.0-7.7); Basophil# 0.03 X10^3/uL; Basophil% 0.2 % (0-1); Eosinophil# 0.01 X10^3/uL; Eosinophils% 0.1 % (0-5); Hematocrit 41.5 % (37-47); Lymphocyte # 0.51 X10^3/ul (0.83-4.51); Lymphocyte % 3.4 % (19-41); Mean Corp Hgb Conc 31.3 g/dL (32-36); Mean Corpuscular Hgb 25.4 pg (27.0-32.0); Mean Corpuscular Volume 81.2 fL (81-99); Monocyte# 0.38 X10^3/uL; Monocyte% 2.5 % (0-10); NRBC Flagged by Analyzer 0 % (0-5); Neutrophil # 14.16 X10^3/uL (2.7-7.7); Neutrophil % 93.5 % (47-70); POSITIVE DIFFERENTIAL YES; Platelet Count 327 K/mm3 (150-450); RBC Distribution Width CV 14.6 % (11.6-14.6); RBC Distribution Width SD 42.5 fl (35.1-43.9); Red Blood Count 5.11 M/mm3 (4.2-5.4); White Blood Count 15.1 K/mm3 (4.4-11.0)
[2022-04-03 08:47] LABS: Differential Indicated SCAN CRITERIA MET
[2022-04-03 09:02] LABS: ALB/GLOB Ratio 0.8 RATIO (0.9-2.4); AST(SGOT) 11 U/L (15-37); Alanine Aminotransfer ALT/SGPT 22 U/L (13-56); Albumin, Serum 3.5 g/dL (3.2-5.0); Alkaline Phosphatase 105 U/L (45-117); Anion Gap 8 (5-15); BUN 16 mg/dL (7-18); BUN/Creat Ratio 22.2 RATIO (10-20); Calcium,Total 8.9 mg/dL (8.5-10.1); Chloride 106 mmol/L (98-107); Creatinine, Serum 0.72 mg/dL (0.55-1.02); EST Glomerular Filtration Rate 88 mL/min (>60); Est Glom Filt Rate - Afr Amer 106 mL/min (>60); Estimated Creatinine Clearance 72.65 ml/min; Globulin 4.3 g/dL (2.2-4.2); Glucose 181 mg/dL (74-106); Lipase 73 U/L (73-393); Potassium 3.6 mmol/L (3.5-5.1); Protein, Total 7.8 g/dL (6.4-8.2); Sodium Level 140 mmol/L (136-145)
[2022-04-03 09:55] VITALS: BP 130/59; PULSE 99; RESP 16; O2SAT 99
--- NOTE | 2022-04-03 09:57 | ED.RN ---
Pt given written and verbal DC instructions. Pt has no pain at this time. Pt given written Rx for bentyl for if she wants to fill it. [facility] Pt had IV removed and ambulated out of the department without difficulty.
== END 2022-04-03 09:58 | disposition home or self-care (01) ==
PROVIDERS: Emergency Provider Emergency Medicine; PCP Family Medicine; Visit Provider Emergency Medicine
DX: K52.9 Noninfective gastroenteritis and colitis, unspecified (principal); E11.42 Type 2 diabetes mellitus with diabetic polyneuropathy; Z79.4 Long term (current) use of insulin; E78.5 Hyperlipidemia, unspecified; I10 Essential (primary) hypertension; E66.9 Obesity, unspecified; Z79.899 Other long term (current) drug therapy
CPT/HCPCS: 80053; 83690; 85025; 96361; 96374; 96375; 99282; J7030; A4216; J2405

== ENCOUNTER → 2022-06-22 | Outpatient (CLI) | payer OTHER, SELFPAY ==
--- NOTE | 2022-06-22 13:42 | NEURO ---
NCS and/or EMG Patient Report Ordering Doctor: Hardeep Anders DATE OF SERVICE: 06/22/22 Nilam presents for electrodiagnostic testing. She reports bilateral leg pain with numbness and tingling. Electrodiagnostic findings: Right peroneal motor nerve demonstrates normal distal latency, amplitude and conduction velocity. Right tibial motor nerve demonstrates normal distal latency with a reduced amplitude and normal conduction velocity. Normal tibial and peroneal F-wave. Absent right sural and superficial peroneal responses. Prolonged H reflex bilaterally. The patient refused testing of the left lower limb. On needle EMG, all muscles tested in the right lower limb showed no evidence of denervation with normal motor unit action potentials. No denervation noted in the right lumbar paraspinals. Electrodiagnostic impression: This is an abnormal, though limited study. 1. Electrodiagnostic findings demonstrate absence of sensory responses in the right lower limb as well as reduced right tibial motor amplitude. While suggestive of polyneuropathy, an accurate assessment cannot be made regarding this without testing of the opposing limb. 2. No electrodiagnostic evidence is noted for a right-sided lumbar radiculopathy. Multi Select Codes Neurology Neurology Interp Codes: 20173-88 Musc test done w/n test comp (interp) and 67401-50 Nrv cndj tst 5-6 studies (interp)
== END | disposition home or self-care (01) ==
PROVIDERS: PCP Family Medicine; Referring Provider Family Medicine; Visit Provider Family Medicine
DX: R20.0 Anesthesia of skin (principal); R20.2 Paresthesia of skin
CPT/HCPCS: 95886; 95909

== ENCOUNTER → 2022-07-19 | Outpatient (CLI) | payer OTHER, SELFPAY ==
--- NOTE | 2022-07-19 11:10 | ECHOD_ITS ---
Reason For Study: Thoracic Ao Ectasia Procedure This was a 2D Doppler, Color Flow transthoracic echocardiogram. Exam performed in department. Left Ventricle Normal LV size. Mild concentric left ventricular hypertrophy. Left ventricular systolic function is normal. The estimated ejection fraction is 60 %. No regional wall motion abnormalities noted. Right Ventricle Normal RV size. Normal systolic function. Atria Normal left atrium. Normal right atrium. Mitral Valve Normal mitral valve. Mild (1+) eccentric mitral valve insufficiency. Tricuspid Valve Normal tricuspid valve. Mild (1+) tricuspid valve insufficiency. Pulmonary artery systolic pressure is 33 mmHg. Aortic Valve Trisinus/trileaflet aortic valve. Pulmonic Valve Normal pulmonic valve. Great Vessels Mildly dilated aortic root. The pulmonary artery is normal size. Inferior vena cava collapse with respiration. Pericardium/Pleural No pericardial effusion. MMode/2D Measurements & Calculations LVIDd: 4.4 cm IVSd: 1.4 cm Ao root diam: 3.9 cm LVIDs: 2.6 cm LVPWd: 1.2 cm RVDd: 3.8 cm FS: 40.7 % LAV(MOD-bp): 53.1 ml LVAd ap4: 29.4 cm2 LVAd ap2: 29.8 cm2 LAV(MOD-bp) Indexed: 25.7 ml/m2 LVLd ap4: 8.4 cm LVLd ap2: 8.2 cm LAV(MOD-sp2): 59.3 ml EDV(MOD-sp4): 86.4 ml EDV(MOD-sp2): 92.0 ml LAV(MOD-sp4): 45.7 ml EDV(sp4-el): 87.7 ml EDV(sp2-el): 91.4 ml LVAs ap4: 15.8 cm2 LVAs ap2: 15.4 cm2 LVLs ap4: 6.8 cm LVLs ap2: 7.1 cm ESV(MOD-sp4): 32.9 ml ESV(MOD-sp2): 28.9 ml ESV(sp4-el): 31.5 ml ESV(sp2-el): 28.4 ml EF(MOD-sp4): 62.0 % EF(MOD-sp2): 68.6 % EF(sp4-el): 64.1 % SV(MOD-sp4): 53.5 ml SV(MOD-sp2): 63.1 ml SV(sp4-el): 56.2 ml LA dimension(2D): 3.9 cm LA A4 area: 16.0 cm2 RA A4 area: 14.8 cm2 TAPSE: 2.2 cm Time Measurements MV dec time: 0.18 sec Doppler Measurements & Calculations MV E max bib: 74.7 cm/sec Lat Peak E' Bib: 10.0 cm/sec Med Peak E' Bib: 8.6 cm/sec MV A max bib: 81.5 cm/sec E/E' lat: 7.5 E/E' med: 8.7 MV E/A: 0.92 MV dec slope: 407.5 cm/sec2 Ao V2 max: 168.1 cm/sec LV V1 max: 115.9 cm/sec Ao max P.3 mmHg LV V1 max P.4 mmHg Ao V2 mean: 115.7 cm/sec LV V1 mean P.8 mmHg Ao mean P.2 mmHg LV V1 mean: 77.1 cm/sec Ao V2 VTI: 39.6 cm LV V1 VTI: 29.6 cm AV (velocity ratio): 0.75 PA V2 max: 98.2 cm/sec TR max bib: 273.3 cm/sec TR max P.9 mmHg ECHO/Echo Complete Interpretation Summary Normal LV size. Mild concentric left ventricular hypertrophy. Left ventricular systolic function is normal. The estimated ejection fraction is 60 %. Mildly dilated aortic root. The global longitudinal strain is normal. The global longitudinal strain = -19. 1 % (normal). Ordering Physician: Armando Garzon Referring Physician: Hardeep Anders Performed By: Kiera Scott RDCS
== END | disposition home or self-care (01) ==
PROVIDERS: PCP Family Medicine; Referring Provider Internal Medicine Cardiovascular Disease; Visit Provider Internal Medicine Cardiovascular Disease
DX: I77.810 Thoracic aortic ectasia (principal); I10 Essential (primary) hypertension; E78.5 Hyperlipidemia, unspecified
CPT/HCPCS: 93306

== ENCOUNTER → 2022-07-22 | Outpatient (CLI) | payer OTHER, SELFPAY ==
--- NOTE | 2022-07-22 08:23 | CT_ITS ---
STUDY: CTA CHEST REASON FOR EXAM: Female, 62 years old. Ascending aortic aneurysm RADIATION DOSAGE (If Supplied By Facility): CTDIvol = ( 18.58 ) mGy, DLP = ( 512.33 ) mGycm TECHNIQUE: The examination was performed with the intravenous administration of IV 100mL Isovue-370. Post-processing of the angiographic images was performed, with multiplanar reformation and 3D reconstruction. Individualized dose optimization techniques were used for this CT. COMPARISON: None. FINDINGS: Normal enhancement of the main pulmonary artery and right and left pulmonary arteries. Normal enhancement of the bilateral peripheral pulmonary arteries. There is no demonstrated pulmonary embolism. Normal thoracic aorta and visualized great vessels. The transverse dimension of the aortic root measures 3.6 cm. There is no demonstrated aortic dissection. Normal heart and pericardium. No coronary calcification is seen. Normal mediastinum. Normal hilar regions. Normal visualized trachea and bronchi. The lungs are well expanded. Normal pulmonary parenchyma. Normal pleura. Normal chest wall structures. There are degenerative changes of thoracic spine. Normal visualized upper abdomen. CT/CTA Chest W/WO Contrast IMPRESSION: Normal CTA chest examination, without a demonstrated pulmonary embolism or arterial dissection. Electronically Signed: Caio Townsend MD at 9:59 EDT ,
[2022-07-22 08:45] LABS: CREATININE FINGERSTICK < 0.9 mg/dL (0.55-1.02); EGFR FINGERSTICK > 60.0000 mL/min (>60)
== END | disposition home or self-care (01) ==
LOC: CT 08:21
PROVIDERS: PCP Family Medicine; Referring Provider Internal Medicine Cardiovascular Disease; Visit Provider Internal Medicine Cardiovascular Disease
DX: I77.810 Thoracic aortic ectasia (principal); I10 Essential (primary) hypertension; E78.5 Hyperlipidemia, unspecified; E66.9 Obesity, unspecified
CPT/HCPCS: 71275; Q9967

== ENCOUNTER 2022-08-08 20:10 | Emergency (ER) | payer OTHER, SELFPAY ==
[2022-08-08 20:11] VITALS: BP 157/90; PULSE 73; RESP 14; TEMP 36.2; O2SAT 100; BMI 37.8
--- NOTE | 2022-08-08 21:31 | ED.RN ---
PT LEAVING AT THIS TIME, DOES NOT WANT TO WAIT ANY LONGER. WILL TRY URGENT CARE TOMORROW.
== END 2022-08-08 21:30 | disposition left against medical advice (07) ==
LOC: ED 21:37
PROVIDERS: PCP Family Medicine
DX: R69 Illness, unspecified (principal); Z53.21 Procedure and treatment not carried out due to patient leaving prior to being seen by health care provider

== ENCOUNTER → 2023-09-30 | Outpatient (CLI) | payer OTHER, SELFPAY ==
--- NOTE | 2023-09-30 08:59 | CT_ITS ---
STUDY: CT LEFT SHOULDER REASON FOR EXAM: Female, 63 years old. LT AXILLARY PAIN, SOFT TISSUE MASS RADIATION DOSAGE (If Supplied By Facility): CTDIvol = ( 35.70 ) mGy, DLP = ( 921.09 ) mGycm TECHNIQUE: The patient was scanned in a multi detector CT scanner. High resolution transaxial imaging was performed without the administration of intravenous contrast material. Sagittal and coronal images were reconstructed. Individualized dose optimization techniques were used for this CT. COMPARISON: None. FINDINGS: Normal glenohumeral articulation. Normal glenoid rim, neck and visualized scapula. Normal humeral head, neck and tuberosities. Normal coracoid process. Normal visualized lateral clavicle. There is mild hypertrophic acromioclavicular arthrosis. There is a Type II morphology (curved), with a neutral orientation. There is left submaxillary lymphadenopathy. Otherwise, normal visualized muscles and soft tissue structures. Normal left axillary region. There is mild degenerative disc disease of the visualized thoracic spine. CT/Extremity Upper without Contra IMPRESSION: Left submaxillary lymphadenopathy. Mild hypertrophic acromioclavicular arthrosis. Mild degenerative disc disease of the visualized thoracic spine. Electronically Signed: Bay Meehan MD at 10:55 EDT ,
== END | disposition home or self-care (01) ==
LOC: CT 08:55
PROVIDERS: PCP Family Medicine; Referring Provider Surgery; Visit Provider Surgery
DX: R22.32 Localized swelling, mass and lump, left upper limb (principal)
CPT/HCPCS: 73200

== ENCOUNTER → 2024-01-19 | Outpatient (CLI) | payer OTHER, SELFPAY ==
--- NOTE | 2024-01-19 16:47 | CT_ITS ---
STUDY: CTA CHEST REASON FOR EXAM: Female, 63 years old. TAA RADIATION DOSAGE (If Supplied By Facility): CTDIvol = ( 18.6 ) mGy, DLP = ( 527.59 ) mGycm TECHNIQUE: The examination was performed with the intravenous administration of IV 100mL Isovue-370. Post-processing of the angiographic images was performed, with multiplanar reformation and 3D reconstruction. Individualized dose optimization techniques were used for this CT. COMPARISON: 07/22/2022 FINDINGS: Normal enhancement of the main pulmonary artery and right and left pulmonary arteries. Normal enhancement of the bilateral peripheral pulmonary arteries. There is no demonstrated pulmonary embolism. Normal thoracic aorta and visualized great vessels. There is no demonstrated aortic dissection. Normal heart and pericardium. Normal mediastinum. Normal hilar regions. Normal visualized trachea and bronchi. The lungs are well expanded. Normal pulmonary parenchyma. Normal pleura. Normal chest wall structures. Normal osseous structures. Normal visualized upper abdomen. CT/CTA Chest W/WO Contrast IMPRESSION: Normal CTA chest examination, without a demonstrated pulmonary embolism or arterial dissection. Electronically Signed: Kurtis Hernandez MD at 9:25 EST ,
== END | disposition home or self-care (01) ==
PROVIDERS: PCP Family Medicine; Referring Provider Physician Assistant Medical; Visit Provider Physician Assistant Medical
DX: I77.810 Thoracic aortic ectasia (principal)
CPT/HCPCS: 71275; Q9967

== ENCOUNTER → 2024-03-11 | Outpatient (CLI) | payer OTHER, SELFPAY ==
[2024-03-11 18:38] LABS: AST(SGOT) 39 U/L (15-37); Alanine Aminotransfer ALT/SGPT 51 U/L (13-56); Albumin, Serum 3.8 g/dL (3.2-5.0); Alkaline Phosphatase 67 U/L (45-117); Bilirubin, Direct 0.13 mg/dL (0.00-0.30); Cholesterol 146 mg/dL (200); High Density Lipoprotein 27 mg/dL; Protein, Total 7.8 g/dL (6.4-8.2); Triglycerides 349 mg/dL; Very Low Density Lipoprotein 70 mg/dL (5-40)
== END | disposition home or self-care (01) ==
LOC: LAB 15:37
PROVIDERS: PCP Family Medicine; Referring Provider Physician Assistant Medical; Visit Provider Physician Assistant Medical
DX: E78.5 Hyperlipidemia, unspecified (principal)
CPT/HCPCS: 36415; 80061; 80076

== ENCOUNTER → 2025-02-04 | Outpatient (CLI) | payer OTHER, SELFPAY ==
--- NOTE | 2025-02-04 14:00 | CT_ITS ---
PROCEDURE: CTA CHEST W/WO CONTRAST 02/04/2025 REASON FOR EXAM: TAA TECHNIQUE: Procedure Code: [id number] Modality: CT Procedure: CTA CHEST W/WO CONTRAST Multiplanar Sagittal and Coronal images were obtained. Two-dimensional three- dimensional post processing imaging obtained. CONTRAST: Isovue 370 VOLUME: 90 mL One or more dose reduction techniques were used (e.g., Automated exposure control, adjustment of the mA and/or kV according to patient size, use of iterative reconstruction technique). RADIATION DOSE SUMMARY: CTDlvol: 23 mGy DLP: 897 mGycm COMPARISON: January 2024 and July 2022. # of known CTs in the past 12 months: 0 # of known Cardiac Nuclear Medicine Studies in the past 12 months: 0 FINDINGS: Thyroid gland: Negative. Lungs: Mild emphysematous changes. No pulmonary nodules or masses. Pleura: Negative for pleural effusion or pneumothorax. Airways: Imaged bronchi and trachea removed withoutnegative. Mediastinum: Negative for mediastinal mass. Lymph nodes: Negative for axillary, mediastinal or hilar adenopathy. Heart and Vasculature: Ascending thoracic aorta 3.7 x 3.6 cm. Stable. Heart normal size. Negative for vascular calcifications of the thoracic aorta. Coronary Artery Calcifications: Mild vascular calcifications of the coronary arteries Upper Abdomen: Cholecystectomy. Hardware: None. Bones: Mild degenerative changes thoracic spine. Age-appropriate degenerative changes of the thoracic spine. CT/CTA Chest W/WO Contrast IMPRESSION: Stable mildly prominent ascending thoracic aorta. Emphysema. Reading Location: [id number]
[2025-02-04 14:23] LABS: CREATININE FINGERSTICK < 1.0 mg/dL (0.55-1.02); EGFR FINGERSTICK > 60.0000 mL/min (>60)
== END | disposition home or self-care (01) ==
LOC: CT 13:57
PROVIDERS: PCP Family Medicine; Referring Provider Physician Assistant Medical; Visit Provider Physician Assistant Medical
DX: I77.810 Thoracic aortic ectasia (principal)
CPT/HCPCS: 71275; Q9967